=== PATIENT | female | born 1950 | race American Indian/Alaskan Native ===

== ENCOUNTER 2017-04-28 11:03 | Outpatient (CLI) | payer MEDICARE ==
[2017-04-28] MEDS ORDERED: NACL ONE (11:31)
[2017-04-28 11:35] LABS: Blood Urea Nitrogen 9 mg/dL (7-17)
--- NOTE | 2017-04-28 13:31 | Cat Scan Report ---
CT scan of chest with IV contrast: History: Pulmonary nodule. Findings: Reactive mediastinal lymph nodes are noted without adenopathy. There is a left hilar lymph node noted measuring 1.5 cm in diameter and right hilar lymph node measuring 1.2 cm in diameter. No pleural or pericardial effusion. Chronic bilateral lung changes with diffuse bronchiectasis. No obvious consolidation noted. No discrete nodularity seen. Ill-defined density left upper lobe series 2 image 84 is probably scarring. Impression: Bilateral diffuse bronchiectasis. Lymph nodes in the mediastinum probably reactive.
== END 2017-04-28 11:04 | disposition home or self-care (01) ==
LOC: CT 11:03
PROVIDERS: ATTEND Internal Medicine Critical Care Medicine
DX: J47.9 Bronchiectasis, uncomplicated (principal); R91.1 Solitary pulmonary nodule
CPT/HCPCS: 36415; 71260; 82565; 84520